=== PATIENT | female | born 1980 | race African-American/Black ===

== ENCOUNTER 2024-04-25 18:32 | Emergency (ER) | payer BC, OTHER ==
[2024-04-25] MEDS ORDERED: HYDROcodone/Acetaminophen 5/325 mg Tablet ONE (20:18)
== END 2024-04-25 20:50 | disposition home or self-care (01) ==
LOC: CSHERS 18:32
DX: S01.21XA Laceration without foreign body of nose, initial encounter (principal); S93.602A Unspecified sprain of left foot, initial encounter; S16.1XXA Strain of muscle, fascia and tendon at neck level, initial encounter; I10 Essential (primary) hypertension; V89.2XXA Person injured in unspecified motor-vehicle accident, traffic, initial encounter
CPT/HCPCS: 12011; 70450; 70486; 72125